=== PATIENT | female | born 1980 | race Caucasian/White ===

== ENCOUNTER 2023-03-09 21:25 | Inpatient (IN) | payer MEDICAID ==
[~2023-03-09] VITALS: Ht 152.4 cm; Wt 81.2 kg
[2023-03-09 21:30] VITALS: BP 103/59; PULSE 100; RESP 17; TEMP 97.8; O2SAT 98
[2023-03-09 22:05] LABS: APPEARANCE,URINE CLEAR (CLEAR); BILIRUBIN,URINE 1+ (NEGATIVE); BLOOD, URINE 2+ (NEGATIVE); COLOR,URINE YELLOW (YELLOW); LEUKOCYTE ESTERASE ,URINE 2+ (NEGATIVE); NITRITE, URINE POSITIVE (NEGATIVE); PROTEIN,URINE 1+ (NEGATIVE); UGLUCOSE NEGATIVE (NEGATIVE)
[2023-03-09 22:07] LABS: ICTOTEST NEGATIVE (NEGATIVE)
[2023-03-09 22:23] LABS: BACTERIA,URINE 3+ /HPF (None Seen); MUCUS,URINE 2+ /LPF (None Seen); SQUAMOUS EPITHELIAL CELL,UR 4-10 (MOD) /LPF (0-3 (FEW)); TRICHOMONAS,URINE None Seen /HPF (None Seen); WBC,URINE 16-25 (MOD) /HPF (0-5); YEAST,URINE None Seen /HPF (None Seen)
[2023-03-09] MEDS ORDERED: NACL 0.9% 1,000 ML IV ONE (23:15)
[2023-03-09] MEDS ORDERED: KETOROLAC 30 MG/ML VIAL IVP ONE (23:15)
[2023-03-09] MEDS ORDERED: cefTRIAXone 1,000 MG VIAL ONE (23:40)
[2023-03-10] VITALS (9 sets, daily range): BP systolic 97–130; BP diastolic 47–64; PULSE 58–109; RESP 16–19; TEMP 98.2–99.2; O2SAT 92–99
[2023-03-10 00:19] LABS: BASOPHILS % (AUTO) 0.2 % (0.0-2.0); HEMATOCRIT 35.4 % (36-48); LYMPHOCYTES # (AUTO) 0.7 K/uL (2.5-16.5); LYMPHOCYTES % (AUTO) 4.7 % (20.5-51.1); MEAN CORPUSCULAR HEMOGLOBIN 30 pg (27-31); MEAN CORPUSCULAR HGB CONC 34 g/dL (33-37); MEAN CORPUSCULAR VOLUME 87.3 fL (80-94); MONOCYTES # (AUTO) 0.8 K/uL (0.8-1.0); MONOCYTES % (AUTO) 5.4 % (1.7-9.3); NEUTROPHILS # (AUTO) 13.5 K/uL (1.8-7.7); PLATELET COUNT (AUTO) 213 K/uL (140-450); RED BLOOD CELL COUNT(AUTO) 4.06 MIL/uL (4.20-5.40); RED CELL DISTRIBUTION WIDTH 13.8 % (11.6-13.7); WHITE BLOOD COUNT (AUTO) 15.1 K/uL (4.8-10.8)
[2023-03-10 00:37] LABS: ALBUMIN 2.5 g/dL (3.4-5.0); ANION GAP 12.7 (8-16); CALCIUM 8.2 mg/dL (8.5-10.1); CARBON DIOXIDE 27.5 mmol/L (21-32); CREATININE 0.8 mg/dL (0.6-1.3); POTASSIUM 3.2 mmol/L (3.5-5.1); TOTAL BILIRUBIN 1.7 mg/dL (0.0-1.0); TOTAL PROTEIN, SERUM 6.5 g/dL (6.4-8.2)
[2023-03-10 00:40] LABS: LACTIC ACID 1.5 mmol/L (0.4-2.0)
[2023-03-10 00:44] LABS: NEUTROPHILS % (AUTO) 89.7 % (42.2-75.2)
[2023-03-10] MEDS ORDERED: MORPHINE SULFATE 4 MG/ML SYR IVP ONE (01:00)
[2023-03-10] MEDS ORDERED: NACL 0.9% 1,000 ML IV ONE (01:00)
[2023-03-10] MEDS ORDERED: ACETAMINOPHEN EXTRA STRENGTH 500 MG TAB PO ONE (04:15)
[2023-03-10] MEDS ORDERED: MAG SULF 2000 MG/WATER PREMIX 50 ML IV PRN (08:00)
[2023-03-10] MEDS ORDERED: ACETAMINOPHEN 650 MG/20.3 ML UDC PO PRN (09:40)
[2023-03-10] MEDS: NACL 0.9% 1,000 ML IV SCH ×3 (09:50→23:35)
[2023-03-10] MEDS: PIPERACILLIN/TAZOBACTAM 2.25 GM in DEXTROSE 5% 50 ML IV SCH ×4 (11:32→23:36)
[2023-03-10] MEDS ORDERED: MORPHINE SULFATE 2 MG/ML SYR IVP SCH (12:44)
[2023-03-10] MEDS ORDERED: DOCUSATE SODIUM 100 MG GELCAP PO PRN (14:15)
[2023-03-10] MEDS ORDERED: ONDANSETRON 4 MG/2 ML VIAL IVP PRN (14:15)
[2023-03-10] MEDS ORDERED: ZOLPIDEM 10 MG TAB PO PRN (14:15)
[2023-03-10] MEDS ORDERED: LORazepam 2 MG/ML VIAL IVP PRN (14:15)
[2023-03-10] MEDS: MORPHINE SULFATE 2 MG/ML SYR IVP PRN (16:29)
[2023-03-10] MEDS ORDERED: NACL 0.9% 1,000 ML IV SCH (21:20)
[2023-03-11] VITALS (9 sets, daily range): BP systolic 91–122; BP diastolic 59–76; PULSE 91–120; RESP 18; TEMP 98.3–99.9; O2SAT 92–98
[2023-03-11] MEDS: POTASSIUM CHLORIDE 10 MEQ TABER PO PRN (00:45)
[2023-03-11] MEDS: PIPERACILLIN/TAZOBACTAM 2.25 GM in DEXTROSE 5% 50 ML IV SCH ×2 (05:13→12:45)
[2023-03-11 08:46] LABS: BASOPHILS % (AUTO) 0.1 % (0.0-2.0); HEMATOCRIT 30.5 % (36-48); HEMOGLOBIN 10.3 g/dL (12.0-16.0); LYMPHOCYTES # (AUTO) 1.2 K/uL (2.5-16.5); LYMPHOCYTES % (AUTO) 8.4 % (20.5-51.1); MEAN CORPUSCULAR HEMOGLOBIN 29 pg (27-31); MEAN CORPUSCULAR HGB CONC 34 g/dL (33-37); MEAN CORPUSCULAR VOLUME 85.4 fL (80-94); MONOCYTES # (AUTO) 1.1 K/uL (0.8-1.0); MONOCYTES % (AUTO) 7.2 % (1.7-9.3); NEUTROPHILS # (AUTO) 12.2 K/uL (1.8-7.7); NEUTROPHILS % (AUTO) 84.3 % (42.2-75.2); PLATELET COUNT (AUTO) 232 K/uL (140-450); RED BLOOD CELL COUNT(AUTO) 3.57 MIL/uL (4.20-5.40); RED CELL DISTRIBUTION WIDTH 13.7 % (11.6-13.7); WHITE BLOOD COUNT (AUTO) 14.5 K/uL (4.8-10.8)
[2023-03-11 09:13] LABS: ALBUMIN 1.9 g/dL (3.4-5.0); ANION GAP 13.1 (8-16); CALCIUM 7.3 mg/dL (8.5-10.1); CARBON DIOXIDE 23.9 mmol/L (21-32); CREATININE 0.8 mg/dL (0.6-1.3); TOTAL BILIRUBIN 1.1 mg/dL (0.0-1.0); TOTAL PROTEIN, SERUM 5.9 g/dL (6.4-8.2)
[2023-03-11] MEDS: NACL 0.9% 1,000 ML IV SCH ×2 (12:00→21:30)
[2023-03-11] MEDS: MORPHINE SULFATE 2 MG/ML SYR IVP PRN (12:19)
[2023-03-11] MEDS ORDERED: POTASSIUM CHLORIDE 10 MEQ TABER PO SCH (15:00)
[2023-03-11] MEDS: PIPERACILLIN/TAZOBACTAM 3.375 GM in DEXTROSE 5% 50 ML IV SCH (20:25)
[2023-03-11] MEDS: ZOLPIDEM 5 MG TAB PO SCH (20:25)
[2023-03-12] VITALS: BP 101/55; PULSE 94; PULSE 96; RESP 18; TEMP 97.6; O2SAT 96
[2023-03-12] MEDS: ACETAMINOPHEN 325 MG TAB PO PRN ×4 (01:54→21:25)
[2023-03-12 04:00] VITALS: BP 106/55; PULSE 85; PULSE 88; RESP 18; TEMP 97.2; O2SAT 96
[2023-03-12] MEDS: NACL 0.9% 1,000 ML IV SCH ×2 (05:08→17:30)
[2023-03-12] MEDS: PIPERACILLIN/TAZOBACTAM 3.375 GM in DEXTROSE 5% 50 ML IV SCH (05:09)
[2023-03-12 06:50] LABS: HEMATOCRIT 31.9 % (36-48); HEMOGLOBIN 10.7 g/dL (12.0-16.0); MEAN CORPUSCULAR HEMOGLOBIN 29 pg (27-31); MEAN CORPUSCULAR HGB CONC 34 g/dL (33-37); MEAN CORPUSCULAR VOLUME 86.4 fL (80-94); PLATELET COUNT (AUTO) 263 K/uL (140-450); RED BLOOD CELL COUNT(AUTO) 3.69 MIL/uL (4.20-5.40); RED CELL DISTRIBUTION WIDTH 13.9 % (11.6-13.7); WHITE BLOOD COUNT (AUTO) 12.7 K/uL (4.8-10.8)
[2023-03-12 07:05] LABS: ALBUMIN 1.8 g/dL (3.4-5.0); ANION GAP 12.1 (8-16); CALCIUM 8.1 mg/dL (8.5-10.1); CARBON DIOXIDE 24.5 mmol/L (21-32); CREATININE 0.8 mg/dL (0.6-1.3); POTASSIUM 3.6 mmol/L (3.5-5.1); TOTAL BILIRUBIN 0.9 mg/dL (0.0-1.0); TOTAL PROTEIN, SERUM 6.1 g/dL (6.4-8.2)
[2023-03-12 07:27] LABS: LYMPHOCYTES % (MANUAL) 9 % (20-46); MONOCYTES % (MANUAL) 12 % (5-12)
[2023-03-12 08:00] VITALS: BP 117/71; PULSE 83; PULSE 87; RESP 18; TEMP 97.2; O2SAT 98
[2023-03-12] MEDS ORDERED: cefTRIAXone 2,000 MG in DEXTROSE 5% 100 ML IV SCH (14:00)
[2023-03-12 20:00] VITALS: BP 100/56; PULSE 92; RESP 18; TEMP 98; O2SAT 96
[2023-03-12] MEDS: ZOLPIDEM 5 MG TAB PO SCH (21:24)
[2023-03-13] MEDS: NACL 0.9% 1,000 ML IV SCH (03:54)
[2023-03-13] MEDS: ACETAMINOPHEN 325 MG TAB PO PRN ×2 (03:55→09:37)
[2023-03-13 04:00] VITALS: BP 115/68; PULSE 88; RESP 18; TEMP 98.2; O2SAT 97
[2023-03-13 06:58] LABS: BASOPHILS % (AUTO) 0.4 % (0.0-2.0); EOSINOPHILS % (AUTO) 0.1 % (0.0-4.0); HEMATOCRIT 31.1 % (36-48); HEMOGLOBIN 10.7 g/dL (12.0-16.0); LYMPHOCYTES # (AUTO) 1.4 K/uL (2.5-16.5); LYMPHOCYTES % (AUTO) 14.1 % (20.5-51.1); MEAN CORPUSCULAR HEMOGLOBIN 29 pg (27-31); MEAN CORPUSCULAR HGB CONC 34 g/dL (33-37); MEAN CORPUSCULAR VOLUME 84.9 fL (80-94); MONOCYTES # (AUTO) 0.8 K/uL (0.8-1.0); MONOCYTES % (AUTO) 7.6 % (1.7-9.3); NEUTROPHILS # (AUTO) 7.9 K/uL (1.8-7.7); NEUTROPHILS % (AUTO) 77.8 % (42.2-75.2); PLATELET COUNT (AUTO) 316 K/uL (140-450); RED BLOOD CELL COUNT(AUTO) 3.67 MIL/uL (4.20-5.40); RED CELL DISTRIBUTION WIDTH 13.3 % (11.6-13.7); WHITE BLOOD COUNT (AUTO) 10.2 K/uL (4.8-10.8)
[2023-03-13 07:01] LABS: CALCIUM 7.9 mg/dL (8.5-10.1); CARBON DIOXIDE 25.2 mmol/L (21-32); CREATININE 0.8 mg/dL (0.6-1.3); POTASSIUM 3.2 mmol/L (3.5-5.1)
[2023-03-13 08:00] VITALS: BP 117/65; PULSE 79; RESP 18; TEMP 97.9; O2SAT 97
[2023-03-13] MEDS: POTASSIUM CHLORIDE 10 MEQ TABER PO PRN (09:35)
[2023-03-13] MEDS ORDERED: cefTRIAXone 2,000 MG in DEXTROSE 5% 100 ML IV SCH (11:00)
[2023-03-13] MEDS ORDERED: LEVO750T75 PO (12:32)
[2023-03-13] MEDS ORDERED: ACET-10509 PO (12:34)
[2023-03-13] MEDS ORDERED: IBUPROFEN 400 MG TAB PO SCH (14:18)
== END 2023-03-13 16:00 | disposition home or self-care (01) | DRG 720 ==
LOC: MED 21:25 → MTU 03-10 05:32
PROVIDERS: ADMIT Family Medicine; ATTEND Family Medicine
DX: A41.9 Sepsis, unspecified organism (principal); E44.1 Mild protein-calorie malnutrition; N12 Tubulo-interstitial nephritis, not specified as acute or chronic; E87.6 Hypokalemia; R74.01 Elevation of levels of liver transaminase levels; Z68.35 Body mass index [BMI] 35.0-35.9, adult
CPT/HCPCS: 36415; 76705; 78223; 80048; 80053; 81001; 81025; 83605; 83690; 85025; 87040; 87081; 87086; 96361; 96365; 96375; 99285; J0696; J1885; J2270; J2543; J7060; Q0092; Q9967